=== PATIENT | male | born 1975 ===

== ENCOUNTER 2017-04-10 15:16 | Emergency (ER) | payer BC, OTHER ==
[2017-04-10 15:24] VITALS: O2SAT 98
--- NOTE | 2017-04-10 16:11 | ED PDOC ---
HPI: General Adult Time Seen by Provider: 04/10/17 16:09 Chief Complaint (Nursing): Flu-like Symptoms Chief Complaint (Provider): flu like symptoms History Per: Patient Additional Complaint(s): 41-year-old male presents with fever, chills, body aches, cough and sore throat that started yesterday. Patient has not taken any medication for symptomatically relief. He denies any chest pain or shortness of breath. Patient 's daughter is also being evaluated for the same symptoms. PMD: [place] Past Medical History Reviewed: Historical Data, Nursing Documentation, Vital Signs Vital Signs: Last Vital Signs Temp 103 F H 04/10/17 15:21 Pulse 120 H 04/10/17 15:21 Resp 16 04/10/17 15:21 BP 126/66 04/10/17 15:21 Pulse Ox 98 04/10/17 18:14 - Medical History PMH: No Chronic Diseases - Surgical History Surgical History: No Surg Hx - Family History Family History: States: No Known Family Hx - Living Arrangements Living Arrangements: With Family - Social History Current smoker - smoking cessation education provided: No Alcohol: None Drugs: Denies - Home Medications Home Medications: Ambulatory Orders Medication Instructions Recorded Ibuprofen [Motrin] 600 mg PO Q6 PRN #20 tab 08/23/14 Oxycodone HCl/Acetaminophen 1 tab PO Q4 #5 tab 08/23/14 [Percocet 325 mg-5 mg] Benzonatate 200 mg PO TID PRN #20 capsule 04/10/17 Oseltamivir Phosphate [Tamiflu] 75 mg PO BID #10 capsule 04/10/17 - Allergies Allergies/Adverse Reactions: Allergies Allergy/AdvReac Type Severity Reaction Status Date / Time No Known Allergies Allergy Verified 08/23/14 10:52 Review of Systems ROS Statement: Except As Marked, All Systems Reviewed And Found Negative Constitutional: Positive for: Fever, Chills, Other (body aches) Cardiovascular: Negative for: Chest Pain Respiratory: Positive for: Cough Gastrointestinal: Negative for: Nausea, Vomiting, Abdominal Pain, Diarrhea Genitourinary Male: Negative for: Dysuria Neurological: Positive for: Headache Physical Exam - Reviewed Nursing Documentation Reviewed: Yes Vital Signs Reviewed: Yes - Physical Exam Appears: Positive for: Well, Non-toxic, No Acute Distress Skin: Positive for: Normal Color. Negative for: Rash Eye Exam: Positive for: Normal appearance ENT: Positive for: Pharyngeal Erythema Cardiovascular/Chest: Positive for: Regular Rate, Rhythm Respiratory: Positive for: Normal Breath Sounds. Negative for: Wheezing, Respiratory Distress Gastrointestinal/Abdominal: Positive for: Soft. Negative for: Tenderness Neurologic/Psych: Positive for: Alert, Oriented - Laboratory Results Result Diagrams: 04/10/17 17:57 04/10/17 17:57 - ECG O2 Sat by Pulse Oximetry: 98 Pulse Ox Interpretation: Normal - Other Rad CXR X-Ray: Interpreted by Me, Viewed By Me X-Ray Interpretation: no acute finding Medical Decision Making Medical Decision Makin41 year old with flu like symptoms, temp of 103 upon arrival Plan: CBC CMP Blood cultures Rapid strep/throat culture Flu swab CXR IVF PO motrin and tylenol VBG Patient feels better after meds administered. He is aware of all diagnostic testing results. Flu B is positive. Prescriptions provided for Tamiflu and Tessalon Perles. Fever control instructions given. Advise follow-up with primary doctor in 1-2 days. Repeat vitals prior to discharge marked improved. Disposition - Clinical Impression Clinical Impression: Influenza - Patient ED Disposition Is Patient to be Admitted: No Counseled Patient/Family Regarding: Studies Performed, Diagnosis, Need For Followup, Rx Given - Disposition Referrals: [facility] [Provider Group] Disposition: Routine/Home Disposition Time: 19:22 Condition: STABLE Additional Instructions: Alternate Tylenol every 4 hours and Motrin every 6 hours for fever control and body aches. Take prescription meds as directed. Rest and drink plenty of fluids. Follow-up with primary doctor in 2-3 days. Prescriptions: Benzonatate 200 mg PO TID PRN #20 capsule PRN Reason: Cough Oseltamivir Phosphate [Tamiflu] 75 mg PO BID #10 capsule Instructions: Influenza (ED) Forms: [employer] ([place]), [facility] ED School/Work Excuse Results - Lab Results Lab Results: 04/10/17 04/10/17 04/10/17 17:57 17:57 17:57 WBC 4.3 L RBC 4.91 Hgb 14.4 Hct 43.4 MCV 88.5 MCH 29.5 MCHC 33.3 RDW 14.0 Plt Count 204 MPV 7.3 Neut % (Auto) 72.2 Lymph % (Auto) 14.5 L Tate % (Auto) 12.7 H Eos % (Auto) 0.1 Baso % (Auto) 0.5 Neut # 3.1 Lymph # 0.6 L Tate # 0.5 Eos # 0.0 Baso # 0.0 pO2 VBG pH VBG pCO2 VBG HCO3 VBG Total CO2 VBG O2 Sat (Calc) VBG Base Excess VBG Potassium Sodium 137 Chloride 98 Glucose Lactate FiO2 Potassium 3.6 Carbon Dioxide 27 Anion Gap 16 BUN 10 Creatinine 1.1 Est GFR ( Amer) > 60 Est GFR (Non-Af Amer) > 60 Random Glucose 112 H Calcium 9.2 Total Bilirubin 0.3 AST 66 H ALT 94 H Alkaline Phosphatase 87 Total Protein 8.4 H Albumin 4.3 Globulin 4.1 H Albumin/Globulin Ratio 1.1 Venous Blood Potassium Influenza Typ A,B (EIA) Pos for influenza b H 04/10/17 17:50 WBC RBC Hgb Hct MCV MCH MCHC RDW Plt Count MPV Neut % (Auto) Lymph % (Auto) Tate % (Auto) Eos % (Auto) Baso % (Auto) Neut # Lymph # Tate # Eos # Baso # pO2 59 H VBG pH 7.41 VBG pCO2 41 VBG HCO3 25.7 VBG Total CO2 27.3 VBG O2 Sat (Calc) 96.3 H VBG Base Excess 1.2 VBG Potassium 3.3 L Sodium 134.0 Chloride 98.0 Glucose 111 H Lactate 1.9 FiO2 21.0 Potassium Carbon Dioxide Anion Gap BUN Creatinine Est GFR ( Amer) Est GFR (Non-Af Amer) Random Glucose Calcium Total Bilirubin AST ALT Alkaline Phosphatase Total Protein Albumin Globulin Albumin/Globulin Ratio Venous Blood Potassium 3.3 L Influenza Typ A,B (EIA)
[2017-04-10] MEDS ORDERED: Sodium Chloride 0.9% 1,000 ML IV STA (16:49)
[2017-04-10 17:58] LABS: VENOUS BLOOD GAS BASE EXCESS 1.2 mmol/L (0.0-2.0); VENOUS BLOOD GAS PCO2 41 mmHg (40-60); VENOUS BLOOD GAS PO2 59 mm/Hg (30-55); VENOUS BLOOD PH 7.41 (7.32-7.43)
--- NOTE | 2017-04-10 18:12 | RAD ---
HISTORY: cough COMPARISON: No prior. TECHNIQUE: Chest PA and lateral FINDINGS: LUNGS: No active pulmonary disease. PLEURA: No significant pleural effusion identified. No pneumothorax apparent. CARDIOVASCULAR: Normal. OSSEOUS STRUCTURES: No significant abnormalities. VISUALIZED UPPER ABDOMEN: Normal. OTHER FINDINGS: None. IMPRESSION: No active disease.
[2017-04-10 18:14] LABS: BASO % 0.5 % (0.0-2.0); EOS % 0.1 % (0.0-4.0); HEMOGLOBIN 14.4 g/dL (12.0-18.0); LYMPH # 0.6 K/uL (1.0-4.3); LYMPH % 14.5 % (20.0-40.0); MEAN CELL VOLUME 88.5 fl (80.0-94.0); MEAN CORPUSCULAR HEMOGLOBIN 29.5 pg (27.0-31.0); MEAN CORPUSCULAR HGB CONC 33.3 g/dL (33.0-37.0); MEAN PLATELET VOLUME 7.3 fl (7.2-11.7); MONO # 0.5 K/uL (0.0-0.8); MONO % 12.7 % (0.0-10.0); NEUT # 3.1 K/uL (1.8-7.0); NEUT % 72.2 % (50.0-75.0); NRBC % 1.6 % (0.0-0.0); RBC 4.91 Mil/uL (4.40-5.90); WHITE BLOOD COUNT 4.3 K/uL (4.8-10.8)
[2017-04-10 18:38] LABS: ALBUMIN 4.3 g/dL (3.5-5.0); ALT/SGPT 94 U/L (21-72); AST/SGOT 66 U/L (17-59); BLOOD UREA NITROGEN 10 mg/dl (9-20); CALCIUM 9.2 mg/dL (8.4-10.2); GFR AFRICAN-AMERICAN > 60; GFR NON-AFRICAN AMERICAN > 60
[2017-04-10 18:58] LABS: ALB/GLOB RATIO 1.1 (1.0-2.1)
[2017-04-10 19:28] VITALS: TEMP 98.6
[2017-04-10 19:38] VITALS: BP 122/72; PULSE 87; RESP 18
== END 2017-04-10 19:40 | disposition home or self-care (01) ==
LOC: H.ER 15:16
DX: J11.1 Influenza due to unidentified influenza virus with other respiratory manifestations (principal)
CPT/HCPCS: 71046; 80053; 82803; 85025; 87040; 87804; 99284; J7040

== ENCOUNTER 2017-11-26 20:19 | Emergency (ER) | payer OTHER, BC ==
[2017-11-26 20:26] VITALS: O2SAT 97
--- NOTE | 2017-11-26 20:57 | ED PDOC ---
Lower Extremity Pain/Injury Time Seen by Provider: 11/26/17 20:40 Chief Complaint (Nursing): Lower Extremity Problem/Injury Chief Complaint (Provider): Lower Extremity Problem/Injury History Per: Patient History/Exam Limitations: no limitations Onset/Duration Of Symptoms: Hrs (x 2) Current Symptoms Are (Timing): Still Present Additional Complaint(s): 42 year old male with a history of knee problems presents to the ED with bilateral knee pain. Patient works as a patrol police lieutenant. During arrest, he fell to the ground on his bilateral knees. He noted pain and discomfort 1 hour after. Declined Motrin. PMD: none provided - Knee Description Of Injury: Fell Past Medical History Reviewed: Historical Data, Nursing Documentation, Vital Signs Vital Signs: Last Vital Signs Temp 98.2 F 11/26/17 20:24 Pulse 100 H 11/26/17 20:24 Resp 18 11/26/17 20:24 BP 124/86 11/26/17 20:24 Pulse Ox 97 11/26/17 20:24 - Medical History PMH: No Chronic Diseases Other PMH: chronic knee problems - Surgical History Surgical History: No Surg Hx - Family History Family History: States: Unknown Family Hx - Home Medications Home Medications: Ambulatory Orders Medication Instructions Recorded Ibuprofen [Motrin] 600 mg PO Q6 PRN #20 tab 08/23/14 Oxycodone HCl/Acetaminophen 1 tab PO Q4 #5 tab 08/23/14 [Percocet 325 mg-5 mg] Benzonatate 200 mg PO TID PRN #20 capsule 04/10/17 Oseltamivir Phosphate [Tamiflu] 75 mg PO BID #10 capsule 04/10/17 Ibuprofen [Motrin] 600 mg PO Q8 PRN #21 tab 11/26/17 - Allergies Allergies/Adverse Reactions: Allergies Allergy/AdvReac Type Severity Reaction Status Date / Time No Known Allergies Allergy Verified 08/23/14 10:52 Review of Systems ROS Statement: Except As Marked, All Systems Reviewed And Found Negative Musculoskeletal: Positive for: Leg Pain (knee pain) Physical Exam - Reviewed Nursing Documentation Reviewed: Yes Vital Signs Reviewed: Yes - Physical Exam Appears: Positive for: Non-toxic, No Acute Distress Head Exam: Positive for: ATRAUMATIC, NORMAL INSPECTION, NORMOCEPHALIC Skin: Positive for: Normal Color, Warm, Dry Eye Exam: Positive for: EOMI, Normal appearance, PERRL Neck: Positive for: Normal, Painless ROM, Supple Cardiovascular/Chest: Positive for: Regular Rate, Rhythm. Negative for: Murmur Respiratory: Positive for: Normal Breath Sounds. Negative for: Wheezing, Respiratory Distress Gastrointestinal/Abdominal: Positive for: Normal Exam, Soft. Negative for: Tenderness Extremity: Positive for: Tenderness (noted medially on left knee), Other ( contusion to anterior right knee). Negative for: Swelling Neurologic/Psych: Positive for: Alert, Oriented (x 3). Negative for: Motor/ Sensory Deficits - ECG O2 Sat by Pulse Oximetry: 97 (RA) Pulse Ox Interpretation: Normal - Progress ED Course And Treament: XRY OF BILATERAL KNEE: NEG FOR FX Medical Decision Making Medical Decision Makin:43 Plan: --Bilateral knee x-rays Scribe Attestation: Documented by Cristina Fitzpatrick, acting as a scribe for Triston Issa PA-C Provider Scribe Attestation: All medical record entries made by the Scribe were at my direction and personally dictated by me. I have reviewed the chart and agree that the record accurately reflects my personal performance of the history, physical exam, medical decision making, and the department course for this patient. I have also personally directed, reviewed, and agree with the discharge instructions and disposition. Disposition - Clinical Impression Clinical Impression: Strain of left knee, Contusion of knee, right - Patient ED Disposition Is Patient to be Admitted: No - Disposition Disposition: Routine/Home Disposition Time: 21:44 Condition: FAIR Prescriptions: Ibuprofen [Motrin] 600 mg PO Q8 PRN #21 tab PRN Reason: Pain, Moderate (4-7) Instructions: Contusion (DC), Knee Sprain (DC) Forms: [facility] ED School/Work Excuse
[2017-11-26 21:48] VITALS: BP 116/73; PULSE 96; RESP 16; TEMP 98.1
--- NOTE | 2017-11-27 09:26 | RAD ---
Date of service: 11/26/2017 PROCEDURE: Bilateral Knee Radiographs. HISTORY: BILATERAL KNEE PAIN AFTER FALL COMPARISON: None. FINDINGS: BONES: No acute fracture or destructive bony lesion identified, bilateral knees. JOINTS: Right Knee: Normal. No osteoarthritis. Left knee: Normal. No osteoarthritis. SOFT TISSUES: Right Knee: Normal. Left Knee: Normal. JOINT EFFUSION: Right Knee: None. Left Knee: None. OTHER FINDINGS: None. IMPRESSION: Normal radiographs of the knees.
== END 2017-11-26 22:00 | disposition home or self-care (01) ==
LOC: H.ER 20:19
DX: S86.912A Strain of unspecified muscle(s) and tendon(s) at lower leg level, left leg, initial encounter (principal); S80.01XA Contusion of right knee, initial encounter; W19.XXXA Unspecified fall, initial encounter; Y99.0 Civilian activity done for income or pay